=== PATIENT | female | born 1990 | race Caucasian/White ===

== ENCOUNTER 2021-02-08 09:59 | Emergency (ER) | payer OTHER ==
[~2021-02-08] VITALS: Ht 175.3 cm; Wt 117.9 kg
[2021-02-08] MEDS ORDERED: KETOROLAC TROMETHAMINE 60 MG/2 ML VIAL IM ONE (10:30)
[2021-02-08] MEDS ORDERED: DIAZEPAM 5 MG TAB PO ONE (10:30)
[2021-02-08] MEDS ORDERED: HYDROCODONE/APAP 5MG-325MG TAB PO ONE (10:30)
[2021-02-08 11:38] VITALS: BP 125/79
== END 2021-02-08 11:39 | disposition home or self-care (01) ==
LOC: ER 10:45
DX: M54.32 Sciatica, left side (principal); M62.830 Muscle spasm of back; Z98.84 Bariatric surgery status
CPT/HCPCS: 99283; J1885

== ENCOUNTER 2021-11-26 08:59 | Emergency (ER) | payer OTHER ==
[~2021-11-26] VITALS: Ht 175.3 cm; Wt 117.9 kg
[2021-11-26 09:41] LABS: STREPTOCOCCUS GRP A ANTIGEN NEGATIVE (NEGATIVE)
== END 2021-11-26 10:42 | disposition home or self-care (01) ==
LOC: ER 09:06
DX: J02.9 Acute pharyngitis, unspecified (principal); B34.9 Viral infection, unspecified; Z20.822 Contact with and (suspected) exposure to COVID-19
CPT/HCPCS: 83518; 87070; 99283; U0002